=== PATIENT | female | born 1975 | race Caucasian/White ===

== ENCOUNTER → 2024-12-29 | Day surgery (SDC) | payer OTHER ==
[~2024-12-29] MED LIST: ACETAMINOPHEN 1000 MG/100 ML 100 ML IV ONE; DAILY VALUE1 EACH; DEXAMETHASONE SOD PHOS INJ 4 MG/ML SDV ONE; EYE LUBRICANT OPTH OINT 3.5GM TUBE OP ONE; FAMOTIDINE 20 MG/2 ML VIAL IV ONE; FENTANYL CITRATE/PF 100MCG/2 ML INJ ONE; LIDOCAINE HCL (LTA) 4 ML SOLN ONE; LIDOCAINE HCL 2% LOCAL INJ 5 ML SDV VIAL INJ ONE; MIDAZOLAM HCL 2 MG/2 ML VIAL ONE; ONDANSETRON HCL INJ 2MG/ML 2ML 2 MG/ML VIAL ONE; PROPOFOL IV EMULSION 10 MG/ML 20 ML VIAL ONE; ROCURONIUM BROMIDE 0 ML IV ONE; ROCURONIUM BROMIDE 1 ML IV ONE; SEVOFLURANE INHAL SOLN 250 ML PEN BTL ONE; SUCCINYLCHOLINE CHLORIDE 20 MG/ML 10ML VIAL ONE; SUGAMMADEX SODIUM 200 MG/2 ML VIAL IV ONE
[2024-12-29] MEDS: LACTATED RINGER'S 1,000 ML ONE (07:39)
[2024-12-29 09:23] VITALS: TEMP 97.8
[2024-12-29 10:15] VITALS: BP 131/87; PULSE 80; RESP 16; O2SAT 97
== END | disposition home or self-care (01) ==
LOC: OR 06:15
PROVIDERS: ATTEND Otolaryngology Otolaryngology/Facial Plastic Surgery
DX: J35.01 Chronic tonsillitis (principal); R19.6 Halitosis; Z01.818 Encounter for other preprocedural examination
CPT/HCPCS: 42826; 81025; 88304; J0131; J1100; J1308; J2003; J2250; J2405; J2704; J3010; J7121; J0330